=== PATIENT | female | born 1995 | race Caucasian/White ===

== ENCOUNTER → 2017-02-18 | Emergency (ER) | payer OTHER ==
[2017-02-18 21:07] VITALS: BP 110/70; PULSE 70; TEMP 97.8; BMI 25.7
--- NOTE | 2017-02-18 21:09 | PDOC ---
History of Present Illness - General Chief Complaint: Headache Stated Complaint: HEADACHE Time Seen by Provider: 02/18/17 21:03 - History of Present Illness Initial Comments: The patient left prior to medical evaluation. Past History - Past Medical History Allergies/Adverse Reactions: Allergies Allergy/AdvReac Type Severity Reaction Status Date / Time No Known Allergies Allergy Verified 05/04/16 07:48 Home Medications: Ambulatory Orders NK [No Known Home Medication] 05/04/16 - Immunization History Immunization Up to Date: Yes - Psycho/Social/Smoking Cessation Hx Anxiety: No Suicidal Ideation: No Smoking History: Unknown if ever smoked Have you smoked in the past 12 months: No Number of Cigarettes Smoked Daily: 0 Information on smoking cessation initiated: No Hx Alcohol Use: No Drug/Substance Use Hx: No Substance Use Type: Alcohol *Physical Exam - Vital Signs Last Vital Signs Temp Pulse Resp BP Pulse Ox 97.8 F 70 14 110/70 100 02/18/17 21:04 02/18/17 21:04 02/18/17 21:04 02/18/17 21:04 02/18/17 21:04 *DC/Admit/Observation/Transfer Diagnosis at time of Disposition: Headache Qualifiers: Headache type: unspecified Headache chronicity pattern: unspecified pattern Intractability: not intractable Qualified Code(s): R51 - Headache - Discharge Dispostion Disposition: LEFT BEFORE [facility] - Referrals Referrals: Axel Gaines MD [Primary Care Provider] -
== END | disposition left against medical advice (07) ==
LOC: FER 21:01
DX: Z53.21 Procedure and treatment not carried out due to patient leaving prior to being seen by health care provider (principal)
CPT/HCPCS: 99282-25

== ENCOUNTER 2019-01-31 19:00 | Emergency (ER) | payer OTHER | END 2019-01-31 22:30 | disposition home or self-care (01) | LOC: FER 19:00 ==

== ENCOUNTER 2019-09-28 12:59 | Emergency (ER) | payer OTHER ==
[2019-09-28 13:03] VITALS: BP 132/82; PULSE 94; TEMP 99.1; BMI 30.1
--- NOTE | 2019-09-28 13:43 | PDOC ---
History of Present Illness - General Chief Complaint: Respiratory Stated Complaint: COUGH Time Seen by Provider: 09/28/19 13:21 - History of Present Illness Initial Comments: 09/28/19 14:27 HPI: 24 y/o with no pmh presenting with emesis. She was diagnosed with flu at urgent care 2 days ago and prescribed tamiflu; was told to present to the ER if she experience any emesis or GI upset. Reports 5 episodes of emesis, last one this morning. She is tolerating liquids without difficulty. She also reports LLQ and suprapubic abd pain with diarrhea. Pain is nonradiating and occurs with engaging core muscles and coughing. She has not tried anything for the meds. She continues to have cough. Denies fever, chest pain, SOB. She also reports vaginal spotting since yesterday but is unclear if vaginal or hematuria. LMP ended 09/24/19; currently sexually active with 1 partner with only condoms for contraception. Reports minor abd pain with urination but no burning PMHx: as noted above ROS: as noted SHx: Denies tobacco use; social alcohol use; no rec drugs Allergies: NKDA ROS: GENERAL/CONSTITUTIONAL: No fever or chills. No weakness. HEAD, EYES, EARS, NOSE AND THROAT: No change in vision. No ear pain or discharge. No sore throat. CARDIOVASCULAR: No chest pain or shortness of breath RESPIRATORY: +cough; no wheezing, or hemoptysis. GASTROINTESTINAL: +nausea; vomiting, diarrhea or constipation. GENITOURINARY: +dysuria; no frequency, or change in urination. MUSCULOSKELETAL: No joint or muscle swelling or pain. No neck or back pain. SKIN: No rash NEUROLOGIC: No headache, vertigo, loss of consciousness, or change in strength/ sensation. ENDOCRINE: No increased thirst. No abnormal weight change HEMATOLOGIC/LYMPHATIC: No anemia, easy bleeding, or history of blood clots. ALLERGIC/IMMUNOLOGIC: No hives or skin allergy. PE: GENERAL: Awake, alert, and fully oriented, no acute distress HEAD: No signs of trauma, normocephalic, atraumatic EYES: EOMI, sclera anicteric, conjunctiva clear ENT: Auricles normal inspection, hearing grossly normal, nares patent, oropharynx clear without exudates. Moist mucosa NECK: Normal ROM, no lymphadenopathy LUNGS: No increased work of breathing, symmetrical chest rise, clear to auscultation bilaterally, no wheezes, crackles or rhonchi HEART: Regular rate, regular rhythm, normal S1 and S2, no murmur, peripheral pulses 2+ and equal bilaterally. ABDOMEN: Soft, nondistended, LLQ ttp with guarding, normoactive bowel sounds. No rebound. No masses. No CVAT MUSCULOSKELETAL: FROM NEUROLOGICAL: Cranial nerves II through XII grossly intact. Normal speech, normal gait, no focal sensorimotor deficits SKIN: Warm, Dry, normal turgor, no rashes or lesions noted Past History - Past Medical History Allergies/Adverse Reactions: Allergies Allergy/AdvReac Type Severity Reaction Status Date / Time shellfish derived Allergy Verified 09/28/19 13:00 Home Medications: Ambulatory Orders Ondansetron [Zofran *Odt*] 4 mg SL TID PRN #10 od.tablet 09/28/19 Oseltamivir Phosphate [Tamiflu -] 75 mg PO BID 09/28/19 Promethazine HCl/Codeine [Prometh-Codein 6.25-10 mg/5 ml] 5 - 10 ml PO TID PRN # 120 ml MDD 30 ml 09/28/19 COPD: No - Immunization History Immunization Up to Date: Yes - Psycho Social/Smoking Cessation Hx Smoking Status: No Smoking History: Never smoked Have you smoked in the past 12 months: No Number of Cigarettes Smoked Daily: 0 Hx Alcohol Use: Yes (socially) Drug/Substance Use Hx: No Substance Use Type: Alcohol *Physical Exam - Vital Signs Last Vital Signs Temp Pulse Resp BP Pulse Ox 99.1 F 94 H 19 132/82 100 09/28/19 12:59 09/28/19 12:59 09/28/19 13:04 09/28/19 12:59 09/28/19 13:04 Medical Decision Making - Medical Decision Making 09/28/19 14:36 24 y/o with no pmh presenting with emesis after starting tamiflu 2 days ago; also reporting abd pain and diarrhea. VSS, AF. PE with LLQ ttp. DDx includes medication side effect, preg, uti, continued flu symptoms, ovarian cyst -ua, upreg 09/28/19 15:16 ua negative for preg or infxn will give zofran and ibuprofen for symptoms discussed results with patient; recommending stopping tamiflu and continue conservative management i.e. robitussin, zofran, tylenol, iburpofen; patient agrees and will be DCd Discharge - Discharge Information Problems reviewed: Yes Clinical Impression/Diagnosis: Abdominal pain Qualifiers: Abdominal location: left lower quadrant Qualified Code(s): R10.32 - Left lower quadrant pain Nausea & vomiting Qualifiers: Vomiting type: unspecified Vomiting Intractability: non-intractable Qualified Code(s): R11.2 - Nausea with vomiting, unspecified Condition: Stable Disposition: HOME - Additional Discharge Information Prescriptions: Ondansetron [Zofran *Odt*] 4 mg SL TID PRN #10 od.tablet PRN Reason: Nausea And/Or Vomiting Promethazine HCl/Codeine [Prometh-Codein 6.25-10 mg/5 ml] 5 - 10 ml PO TID PRN # 120 ml MDD 30 ml PRN Reason: Cough - Follow up/Referral - Patient Discharge Instructions Patient Printed Discharge Instructions: DI for Influenza -- Adult, DI for Nausea -- Adult Additional Instructions: Additional Instructions: Please return to the emergency department with any new or worsening symptoms or concerns. Please follow up with your primary care physician within 72 hours. You may take zofran 4mg 1-2 tablets every 8 hours as needed for nausea. You may take tylenol 650mg every 6 hours for pain control as well as ibuprofen 600mg every 6 hours. You may take the robitussin AC we sent to you pharmacy; please follow instructions for use - Post Discharge Activity
--- NOTE | 2019-09-28 14:22 | PDOC ---
Attending Attestation - Resident Resident Name: Rikki Costa - ED Attending Attestation I have performed the following: I have examined & evaluated the patient, The case was reviewed & discussed with the resident, I agree w/resident's findings & plan, Exceptions are as noted - HPI HPI: 09/28/19 15:49 Patient with positive flu swab, flulike illness since Thursday, on Tamiflu Thursday and Thursday. Since beginning the Tamiflu, she has had nausea, vomiting, and diarrhea, though she is holding down food and fluids for brief periods of time. Her flu symptoms have improved, fever is resolving, as are body aches, but a dry cough persists. - Physicial Exam PE: 09/28/19 15:51 Alert oriented no acute distress vital signs normal ENT clear, neck supple. Lungs clear to PNA CV without murmur rub or gallop Abdomen benign Wet mucous membranes and good skin turgor. Tolerating p.o. fluids. No emesis or retching at present - Medical Decision Making 09/28/19 15:51 Assessment: Recovering from influenza, symptoms resolving, GI symptoms most likely reaction to Tamiflu. She discontinued the Tamiflu on her own today. Plan: Zofran for symptomatic relief of nausea and vomiting, push p.o. fluids, Tylenol, cough suppressant, since some vomiting seems to be related to coughing. Rest and follow-up if symptoms worsen ER, otherwise recheck primary physician 2 to 3 days. Fully ambulatory in no significant pain or other distress at discharge.
[2019-09-28 14:25] LABS: CALCIUM OXALATE CRYSTALS FEW /hpf (NONE SEEN); EPITHELIAL CELLS MODERATE /hpf
[2019-09-28 14:26] LABS: URINE MUCUS 1+
[2019-09-28] MEDS ORDERED: IBUPROFEN 400 MG TABLET (FP) PO ONE ×2 (15:14→15:17)
[2019-09-28] MEDS ORDERED: ONDANSETRON *ODT* 4 MG TABLET SL ONE (15:14)
[2019-09-28] MEDS ORDERED: ONDANSETRON *ODT* 4 MG TABLET ONE (15:17)
== END 2019-09-28 15:31 | disposition home or self-care (01) ==
LOC: FER 12:59
DX: R10.32 Left lower quadrant pain (principal); R11.12 Projectile vomiting
CPT/HCPCS: 81003; 81015; 84703; 99283-25; Q0162